=== PATIENT | male | born 1975 | race Caucasian/White ===

== ENCOUNTER 2016-09-12 20:24 | Emergency (ER) | payer OTHER ==
[~2016-09-12] VITALS: Ht 180.3 cm; Wt 98.6 kg
[2016-09-12 20:34] VITALS: BP 164/103; PULSE 99; RESP 20; O2SAT 97
--- NOTE | 2016-09-12 20:57 | ED.REPORT ---
HPI-General Illness Date of Service Sep 12, 2016 ED Provider: Nhi Owens MD Patient is a 41 year old male who presents to the ED after he was found to be hyperglycemic with a blood sugar of 600 at 8pm this evening. Patient admits that he first started feeling unwell 3 weeks ago. Two weeks ago he developed blurry vision, headache, frequent urination, increased thirst, and lethargy. Patient reports associated nausea and vomiting, especially after eating solid food. He has lost 20 lbs in the past 2 weeks. He denies abdominal pain, diarrhea , or dysuria. Patient last had labs drawn in May 2016, with a fasting blood glucose of 140. Patient states that he was recently on several courses of antibiotics, first due to a cyst at his groin then for a yeast infection. Patient denies a history of diabetes mellitus or hypertension. Nursing Notes Stated Complaint: HIGH BLOOD SUGAR Chief Complaint: General Complaint Nursing Notes Reviewed: Yes Allergies: Coded Allergies: ciprofloxacin (Verified Allergy, Mild, 09/12/16) cyclobenzaprine (Verified Allergy, Mild, 09/12/16) nickel (Verified Allergy, Mild, 09/12/16) polyethylene glycol 3350 (Verified Allergy, Mild, 09/12/16) Scheduled Metformin (Metformin) 500 Mg Tablet 500 MG PO BID General Time Seen by MD: 20:55 Chief Complaint Other (high blood sugar) Hx Obtained From: Patient Arrived By: Walk-in Sudden in Onset?: No Onset Occurred: Just prior to arrival (3 weeks of feeling unwell) Symptom Duration: Since onset Location: : Head Quality: Painful Severity: Current: Mild Severity: Maximum: Mild Recent Healthcare: Recent doctor visit Similar Sx Previous: No Past Medical History Past Medical History Reports: GERD, Denies: Diabetes mellitus, Hypertension Past Surgical History none reported Smoking History Unknown if Ever Smoker Social History Other Social History: Good social support, , Local resident Ambulatory Status Independent Review of Systems + increased thirst Full Review of Systems Constitutional: Reports: Fatigue, Recent wt loss Eyes: Reports: Blurred bilateral GI: Reports: Nausea, Vomiting, Denies: Abdominal pain, Diarrhea Male: Reports Urination increased, Denies Dysuria Neurologic: Reports: Dizziness Complete sys rev & neg: except as marked. Physical Exam Vital Signs Vital Signs Date Time Temp Pulse Resp B/P Pulse Ox O2 Delivery O2 Flow Rate FiO2 09/13/16 00:26 36.6 83 18 135/85 97 Room Air 09/12/16 20:34 36.6 99 20 164/103 97 Room Air Initial VS: Reviewed Head / Eyes: Atraumatic, Normocephalic, PERRL ENT: Conjunctiva normal, No scleral icterus Neck: Supple, Full range of motion Respiratory: Breath sounds normal, Clear to auscultation, No respiratory distress Cardiovascular: Regular rate & rhythm, Heart sounds normal Abdomen / GI: Soft, Non-tender, No guarding, No rebound, No distention Extremities: Vascular intact, Neuro intact, No swelling Skin: Warm, Dry, No cyanosis Neurologic: Alert, Oriented, Nonfocal Psychiatric: Mood/affect normal, Behavior normal, Normal thought content General/Constitutional: Awake, Alert, No acute distress Head / Eyes: Atraumatic, Normocephalic, PERRL ENT: Airway patent Mouth: Positive: Mucous membranes dry Interpretation & Diagnostics Lab Results Interpretation Result Diagram: 09/12/16204909/12/162049 Test 09/12/16 20:50 09/12/16 21:15 09/12/16 22:30 White Blood Count 8.6th/mm3 (3.8-10.1) Red Blood Count 5.64mil/mm3 (4.40-5.80) Hemoglobin 16.6g/dL (13.8-17.2) Hematocrit 45.2% (41.0-50.0) Mean Corpuscular Volume 80.1fL (81-100) Mean Corpuscular Hemoglobin 29.4pg (27.0-35.0) Mean Corpuscular Hemoglobin Concent 36.7% (32.0-37.0) Red Cell Distribution Width 12.4% (12.3-15.4) Platelet Count 243bil/L (150-400) Neutrophils (%) (Auto) 58.6% (40-74) Lymphocytes (%) (Auto) 32.4% (14-46) Monocytes (%) (Auto) 6.9% (4-12) Eosinophils (%) (Auto) 1.7% (0-5) Basophils (%) (Auto) 0.2% (0-3) Sodium Level 126mEq/L (134-144) Potassium Level 4.3mEq/L (3.5-5.2) Chloride Level 85mEq/L (97-108) Carbon Dioxide Level 21mmol/L (18-29) Blood Urea Nitrogen 22mg/dL (6-24) Creatinine 0.85mg/dL (0.76-1.27) Estimat Glomerular Filtration Rate 105mL/min (>59) Glucose Level 621mg/dL (60-99) Lactic Acid Level 1.9mmol/L (0.4-2.0) Calcium Level 9.1mg/dL (8.5-10.1) Magnesium Level 1.9mg/dL (1.6-2.6) Total Bilirubin 1.0mg/dL (0.0-1.2) Aspartate Amino Transf (AST/SGOT) 42U/L (0-50) Alanine Aminotransferase (ALT/SGPT) 75U/L (0-44) Alkaline Phosphatase 125U/L (25-150) Total Protein 7.4g/dL (6.4-8.4) Albumin 4.4g/dL (3.4-5.0) Ketones Negative (Negative) Hold Red Top Tube Received (Received) Urine Color Straw (YELLOW) Urine Appearance Hazy (CLEAR,HAZY) Urine pH 5.5 (5.0-8.0) Urine Specific [place] <1.005 (1.003-1.035) Urine Protein Negativemg/dL (NEG,TRACE) Urine Glucose (UA) >1000mg/dL (NEGATIVE) Urine Ketones 15mg/dL (NEGATIVE) Urine Occult Blood Trace (NEGATIVE) Urine Nitrite Negative (NEGATIVE) Urine Bilirubin Negative (NEGATIVE) Urine Urobilinogen Normalmg/dL (NORMAL) Urine Leukocyte Esterase Negative (NEGATIVE) Urine RBC 0-2/hpf (0-2) Urine WBC 0-5/hpf (0-5) Urine Epithelial Cells Occasional/hpf (NONE-MOD) Urine Crystals None seen (NONE SEEN) Urine Bacteria None/hpf (NONE-FEW) Urine Hyaline Casts None/lpf (NONE) Urine Granular Casts None seen (NONE SEEN) Urine Waxy Casts None seen (NONE SEEN) Urine Red Blood Cell Casts None seen (NONE SEEN) Urine White Blood Cell Casts None seen (NONE SEEN) Urine Mucus None seen (None Seen) Urine Trichomonas None seen (NONE SEEN) Urine Yeast None (NONE SEEN) Urinalysis Comment None Urine Culture Reflexed Not indicated Re-Eval/Medical Decision Med Decision/Clinical Course 41-year-old male with past medical history of hypertension here with polydipsia and polyuria and elevated blood glucose. Differential diagnosis includes but is not limited to new onset diabetes versus DKA versus HHS versus simple hyperglycemia. Patient has Accu-Chek in the 600s. His CMP is remarkable for an anion gap of 20 however, his bicarbonate is 21. His VBG did not show any evidence of acidosis, and he had no ketones in his blood. He was treated with 2 L of fluids, along with 5 units of insulin, as he is insulin jostin. His blood sugar dropped to the 300s while he was here, and he was feeling much better. At this time, he does not have DKA or HHS. I have started him on metformin and he has a follow-up appointment on September 16 with his primary care physician. He has been given very strict return precautions and is amenable to discharge at this time with follow-up. Source of Hx: Old records Time of Eval: 22:16 Patient Status: Condition improved Re-Evaluation/Progress Note: Rechecked the patient. Discussed his labs and the plan for discharge. He will receive fluids and medications in the ED. Time of Eval: 00:17 Patient Status: Condition improved Re-Evaluation/Progress Note: Patient understands and agrees with the plan to be discharged home. Discharge instructions and follow-up discussed. All questions were addressed. Return to the ED warnings given. Counseled Regarding: Diagnosis, Lab results, Need for follow-up, When/why to return to ED Discharge & Departure Primary Impression: Diabetes mellitus Diabetes mellitus type: type 2 Diabetes mellitus complication status: with unspecified complications Qualified Code: E11.8 - Type 2 diabetes mellitus with unspecified complications Additional Impression: Hyperglycemia Disposition: Home Discharge Condition All VS Reviewed: Yes Condition: Stable Patient Instructions: Diabetes Mellitus Type 2 in Adults (ED) Additional Instructions: Your blood sugar was 621 tonight and you have been diagnosed with diabetes mellitus. Start taking Metformin once a day for the first week. This medication may cause diarrhea. After the first week increased to twice daily. Follow-up with your doctor in the next 1-2 days. Return to the Emergency Department if you develop abdominal pain, persistent vomiting, fever, or any other concerning symptoms. Your blood pressure was elevated in the emergency department today. You should follow-up with your primary care physician regarding your high blood pressure. You may need to be started on medication to manage your blood pressure. Referrals: Doc Caruso MD (PCP) Adelina Attestation Portions of this note were transcribed by Lynette Mccarty. I, Dr. Owens personally performed the history, physical exam and medical decision-making; I reviewed and confirmed the accuracy of the information in the transcribed note. Signed by: Adelina Saxena, 09/13/2016 0016 copies to: Doc Caruso MD, Rebecca A MD Sep 12, 2016 20:57 Lynette Mccarty Sep 12, 2016 21:05
[2016-09-12 21:00] LABS: BASOPHILS % (AUTO) 0.2 % (0-3); EOSINOPHILS % (AUTO) 1.7 % (0-5); MONOCYTES % (AUTO) 6.9 % (4-12); Mean Corpuscular Hemoglobin 29.4 pg (27.0-35.0); Mean Corpuscular Volume 80.1 fL (81-100); NEUTROPHILS % (AUTO) 58.6 % (40-74); Platelet Count 243 bil/L (150-400)
[2016-09-12 21:21] LABS: Magnesium 1.9 mg/dL (1.6-2.6)
[2016-09-12] MEDS ORDERED: Insulin Human REGular-Omnicell 100 Unit/mL SUBQ ONE (21:40)
[2016-09-12] MEDS: 0.9% Sodium Chloride 1,000 ML IV SCH ×2 (21:55→23:05)
[2016-09-12 22:46] LABS: APPEARANCE,URINE HAZY (CLEAR,HAZY); COLOR,URINE STRAW (YELLOW); OCCULT BLOOD,URINE TRACE (NEGATIVE); PH,URINE 5.5 (5.0-8.0); UROBILINOGEN,URINE NORMAL (NORMAL)
[2016-09-13] MEDS ORDERED: METF500T4 PO (00:13)
[2016-09-13 00:26] VITALS: BP 135/85; PULSE 83; RESP 18; O2SAT 97
== END 2016-09-13 00:30 | disposition home or self-care (01) ==
LOC: SED 20:24
DX: E11.65 Type 2 diabetes mellitus with hyperglycemia (principal); K21.9 Gastro-esophageal reflux disease without esophagitis; Z79.84 Long term (current) use of oral hypoglycemic drugs; Z88.1 Allergy status to other antibiotic agents; Z88.8 Allergy status to other drugs, medicaments and biological substances
CPT/HCPCS: 36415; 80053; 81000; 82009; 82803; 82948; 83036; 83605; 83735; 85025; 96360; 96361; 96372; 99284; J1815; J7030